=== PATIENT | female | born 1985 | race Caucasian/White ===

== ENCOUNTER 2018-12-03 21:17 | Emergency (ER) | payer OTHER, MEDICAID ==
[~2018-12-03] VITALS: Ht 165.1 cm; Wt 123.7 kg
[2018-12-03] MEDS ORDERED: ELMIRON 100 MG100 M1 PO (21:47)
[2018-12-03] MEDS ORDERED: BENTYL 10 MG CA10 MG PO (21:48)
[2018-12-03] MEDS ORDERED: TOPAMAX 25 MG T25 M1 PO (21:49)
[2018-12-03] MEDS ORDERED: SYMBICORT160 MCG/4. INH (21:50)
[2018-12-03] MEDS ORDERED: PROAIR HFA8.5 GM INH (21:50)
[2018-12-03] MEDS ORDERED: HYDROCHLOROTHIA25 M2 PO (21:51)
[2018-12-03] MEDS ORDERED: TRAMADOL 50 MG50 MG PO ×2 (21:51→21:52)
[2018-12-03] MEDS ORDERED: PANTOPRAZOLE SO40 M1 PO (21:54)
[2018-12-03] MEDS ORDERED: FLONASE 0.05%50 MCG NARES (21:54)
[2018-12-03] MEDS ORDERED: ONDANSETRON HCL4 M2 PO (21:55)
[2018-12-03 22:03] LABS: ABSOLUTE BASOPHILS 0.1 thou/uL (0.0-0.2); ABSOLUTE EOSINOPHILS 0.2 thou/uL (0.0-0.7); ABSOLUTE LYMPHOCYTES 5.2 thou/uL (0.8-5.3); ABSOLUTE MONOCYTES 0.5 thou/uL (0.0-1.2); ABSOLUTE NEUTROPHILS 4.5 thou/uL (1.6-8.1); BASOPHILS 0.9 %; HEMATOCRIT 38.3 % (37.0-47.0); HEMOGLOBIN 13.2 gm/dL (12.0-15.0); LYMPHOCYTES 49.3 %; MCH 29.9 pg (26.0-34.0); MCHC 34.5 g/dL (28.0-37.0); MCV 86.6 fL (80.0-100.0); MONOCYTES 5.1 %; MPV 8.1 fl. (7.2-11.1); NUCLEATED RBCS 0 /100WBC; PLATELET COUNT* 373 thou/uL (150-400); POLYS 42.7 %; RBC 4.43 mil/uL (4.20-5.00); RDW-CV 13.5 % (10.5-14.5); WBC 10.6 thou/uL (4.0-11.0)
[2018-12-03 22:17] LABS: CALCIUM 8.8 mg/dL (8.5-10.1); CREATININE 0.7 mg/dL (0.6-1.3)
[2018-12-03 22:27] LABS: ALBUMIN 3.6 g/dL (3.4-5.0); TOTAL BILIRUBIN 0.3 mg/dL (<0.1-1.0); TOTAL PROTEIN 7.1 g/dL (6.4-8.2)
[2018-12-03 22:54] LABS: SGOT 13.2 U/L (15-37); SGPT 27.6 U/L (30-65)
[2018-12-03] MEDS ORDERED: LEVAQUIN 500 M500 MG PO (23:21)
[2018-12-03] MEDS ORDERED: MEDROLDOSEPACK PO (23:21)
[2018-12-03 23:55] VITALS: BP 117/60
--- NOTE | 2018-12-04 14:29 | EKG ---
[place] [address] ELECTROCARDIOGRAM REPORT Name: EFRAIN NICHOLSON Room: [facility]#: [id number] Admission: 12/03/18 Attend Phys: Discharge: 12/03/18 Date of : 83 Report #: [id number] THIS REPORT FOR: //name// [facility] ED Test Date: 2018-12-03 Test Time: 21:25:51 Pat Name: EFRAIN BONEDEIONCASHWesley Department: Room: Gender: F Behavior Therapist: : 1985 Requested By: Keny Cortes Order Number: [id number] MD: Curt Meadows Measurements Intervals [place] Rate: 77 P: 52 HI: 189 QRS: 45 QRSD: 97 T: 12 QT: 396 QTc: 449 Interpretive Statements Sinus rhythm Abnormal inferior Q waves Baseline wander in lead(s) V2 No previous ECG available for comparison Electronically Signed On 12-04-2018 14:29:48 CDT by Curt Meadows [email or web address] <ELECTRONICALLY SIGNED> By: Curt Meadows MD, [facility] 12/04/18 1429 24 24 Curt Meadows MD, FACC /EPI
== END 2018-12-03 23:58 | disposition home or self-care (01) ==
LOC: M.ERS 21:17
PROVIDERS: Emergency Medicine
DX: J45.909 Unspecified asthma, uncomplicated (principal); Z88.1 Allergy status to other antibiotic agents; Z88.2 Allergy status to sulfonamides; Z88.0 Allergy status to penicillin; Z88.8 Allergy status to other drugs, medicaments and biological substances

== ENCOUNTER → 2021-02-28 | Emergency (ER) | payer OTHER, MEDICAID ==
[~2021-02-28] VITALS: Ht 165.1 cm; Wt 117.9 kg
[~2021-02-28] MED LIST: BENTYL 10 MG CA10 MG PO; ELMIRON 100 MG100 M1 PO; FLONASE 0.05%50 MCG NARES; HYDROCHLOROTHIA25 M2 PO; LEVAQUIN 500 M500 MG PO; MEDROLDOSEPACK PO; ONDANSETRON HCL4 M2 PO; PANTOPRAZOLE SO40 M1 PO; PROAIR HFA8.5 GM INH; SYMBICORT160 MCG/4. INH; TOPAMAX 25 MG T25 M1 PO; TRAMADOL 50 MG50 MG PO
[2021-02-28 08:06] VITALS: BP 152/73
== END ==
LOC: M.ERS 07:38
DX: K08.89 Other specified disorders of teeth and supporting structures (principal); Z53.21 Procedure and treatment not carried out due to patient leaving prior to being seen by health care provider